=== PATIENT | male | born 1965 | race African-American/Black ===

== ENCOUNTER 2016-07-26 21:20 | Emergency (ER) | payer OTHER ==
[2016-07-26] MEDS ORDERED: SODIUM CHLORIDE 0.9% 500 ML IV STA (21:43)
[2016-07-26] MEDS ORDERED: ONDANSETRON 4 MG/2 ML VIAL IVP STA (21:43)
[2016-07-26 21:45] LABS: Glucose,Whole Blood 319 mg/dL (75-99)
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
[2016-07-26 22:10] LABS: Appearance,Urine Clear (Clear); Basophils % (A) 0 %; Bilirubin,Urine Negative (Negative); CH 29.2; CHCM 33.6; Eosinophils # (A) 0.1 k/uL (0-0.7); Eosinophils % (A) 2 %; Glucose,Urine (UA) 4+ (Negative); HCT 46.4 % (39.0-53.0); HDW 2.14; HGB 15.4 gm/dL (13.0-17.5); Ketones,Urine 1+ (Negative); Leukocyte Esterase,Urine Negative (Negative); Luc # (Auto) 0.09; Luc % (Auto) 1; Lymphocytes # (A) 1.8 k/uL (1.0-4.8); Lymphocytes % (A) 24 %; MCHC 33.2 g/dL (31.0-37.0); MCV 87.3 fL (80.0-100.0); Mean Platelet Volume 6.6; Monocytes # (A) 0.4 k/uL (0-1.0); Monocytes % (A) 5 %; Neutrophils # (A) 4.9 k/uL (1.3-7.7); Neutrophils % (A) 67 %; Nitrite,Urine Negative (Negative); PH, Urine 5.5 (5.0-8.0); Protein,Urine Negative (Negative); RBC 5.31 m/uL (4.30-5.90); RDW 14.6 % (11.5-15.5); Specific Gravity,Urine 1.017 (1.001-1.035); UA Billing (MACRO vs. MICRO) CHEM; Urobilinogen,Urine <2.0 mg/dL (<2.0); WBC 7.3 k/uL (3.8-10.6); WBC (Perox) 7.15
[2016-07-26 22:21] LABS: ALT 31 U/L (21-72); AST 21 U/L (17-59); Alkaline Phosphatase 107 U/L (38-126); Amylase 60 U/L (30-110); Anion Gap 13 mmol/L; Blood Urea Nitrogen 17 mg/dL (9-20); Calcium 10.2 mg/dL (8.4-10.2); Carbon Dioxide 25 mmol/L (22-30); Chloride 103 mmol/L (98-107); Glucose 314 mg/dL (74-99); Non-African American GFR(MDRD) >60 (>60 ml/min/1.73 sqM); Sodium 141 mmol/L (137-145); Total Bilirubin 0.4 mg/dL (0.2-1.3); Total Protein 7.3 g/dL (6.3-8.2)
[2016-07-26 22:53] LABS: Glucose,Whole Blood 280 mg/dL (75-99)
--- NOTE | 2016-07-26 23:18 | XR ---
EXAM: XR Chest, 2 Views. CLINICAL HISTORY: Reason: pain TECHNIQUE: Frontal and lateral views of the chest. COMPARISON: No relevant prior studies available. FINDINGS: Lungs: Unremarkable. No consolidation. Pleural spaces: Unremarkable. No pneumothorax. Heart: Unremarkable. No cardiomegaly. Mediastinum: Unremarkable. Bones: Mild, chronic-appearing thoracolumbar compression deformities. No acute fracture. IMPRESSION: Normal chest.
--- NOTE | 2016-07-26 23:19 | XR ---
EXAM: XR Abdomen Complete, 2 or More Views. CLINICAL HISTORY: Reason: left-sided abdominal discomfort TECHNIQUE: Frontal view of the abdomen/pelvis with upright view of the abdomen. COMPARISON: No relevant prior studies available. FINDINGS: Free air: None. Gastrointestinal tract: Unremarkable. No dilation. Bones: Unremarkable. No acute fracture. IMPRESSION: Normal abdomen and pelvis.
[2016-07-26 23:28] LABS: Glucose,Whole Blood 242 mg/dL (75-99)
[2016-07-26] MEDS ORDERED: SODIUM CHLORIDE 0.9% 1,000 ML IV ONE (23:42)
[2016-07-27 00:02] LABS: Glucose,Whole Blood 239 mg/dL (75-99)
[2016-07-27] MEDS ORDERED: ACETAMINOPHEN TAB 500 MG TAB PO STA (00:06)
[2016-07-27] MEDS ORDERED: INSULIN REGULAR 100 UNIT/ML VIAL SQ ONE (00:08)
[2016-07-27 00:38] LABS: Glucose,Whole Blood 254 mg/dL (75-99)
[2016-07-27 00:52] VITALS: RESP 20
[2016-07-27 01:12] LABS: Glucose,Whole Blood 236 mg/dL (75-99)
[2016-07-27 01:17] VITALS: BP 157/95; PULSE 90; TEMP 97.6
== END 2016-07-26 23:00 | disposition home or self-care (01) ==
LOC: EC 21:20
DX: E13.10 Other specified diabetes mellitus with ketoacidosis without coma (principal); F17.200 Nicotine dependence, unspecified, uncomplicated; Z79.4 Long term (current) use of insulin; Z79.82 Long term (current) use of aspirin; Z79.899 Other long term (current) drug therapy
CPT/HCPCS: 36415; 80053; 82150; 82009; 83690; 85025; 81003; 87086; 71020; 74020; 99283; 96374; 96361; J2405

== ENCOUNTER 2016-09-16 03:24 | Emergency (ER) | payer OTHER ==
[2016-09-16 03:33] VITALS: BP 135/90; PULSE 88; RESP 18; TEMP 97.7
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
== END 2016-09-16 04:04 | disposition home or self-care (01) ==
LOC: EC 03:24
DX: S31.30XA Unspecified open wound of scrotum and testes, initial encounter (principal); S31.20XA Unspecified open wound of penis, initial encounter; E78.5 Hyperlipidemia, unspecified; I10 Essential (primary) hypertension; E11.9 Type 2 diabetes mellitus without complications; F17.200 Nicotine dependence, unspecified, uncomplicated; Z79.4 Long term (current) use of insulin; Z79.82 Long term (current) use of aspirin; Z79.84 Long term (current) use of oral hypoglycemic drugs; Z79.899 Other long term (current) drug therapy; Z88.0 Allergy status to penicillin; Z98.890 Other specified postprocedural states; X58.XXXA Exposure to other specified factors, initial encounter; Y93.89 Activity, other specified
CPT/HCPCS: 87070; 87077; 87186; 87205; 99283